=== PATIENT | female | born 1950 | race Caucasian/White ===

== ENCOUNTER → 2017-03-03 | Outpatient (CLI) | payer MEDICARE, OTHER | LOC: WI 13:02 | PROVIDERS: ATTEND Family Medicine | DX: Z12.31 Encounter for screening mammogram for malignant neoplasm of breast (principal) | CPT/HCPCS: 77067; G0202 ==

== ENCOUNTER → 2018-03-16 | Outpatient (CLI) | payer MEDICARE, OTHER ==
--- NOTE | 2018-03-16 13:43 | WOMENS IMAGING REPORT ---
EXAM DESCRIPTION: BONE DENSITY HIP/SPINE COMPLETED DATE/TIME: 03/16/2018 12:58 pm REASON FOR STUDY: OSTEOPOROSIS M81.0 AGE-RELATED OSTEOPOROSIS W/O CURRENT PATHOLOGICAL FRAC COMPARISON: Multiple since 2006, most recently 2016 TECHNIQUE: Dual-Energy X-ray Absorptiometry (DEXA) of the AP Spine and Hip. LIMITATIONS: None. FINDINGS: LUMBAR SPINE: The bone mineral density (BMD) measured from L1-L4 in the AP projection correlates with a T-score of -1.0, which is osteopenia as defined by the World Health Organization. This represents a 5% decline since 2016. HIP: The bone mineral density (BMD) measured in the left total hip correlates with a T-score of -1.9, whi ch is osteopenia as defined by the World Health Organization. This represents a 6% decrease in bone density compared to 2016 IMPRESSION: 1. LUMBAR SPINE: Osteopenia 2. HIP: Osteopenia COMMENT: The World Health Organization defines low BMD as follows: T-score: Normal: Greater than -1.0 Osteopenia: Between -1.0 and -2.5 Osteoporosis: Less than -2.5 without fractures Established osteoporosis: Less than -2.5 with fractures In general, you may wish to consider: Diagnosis Treatment Follow-up DEXA Normal BMD Prevention 2-3 years Osteopenia Prevention/Therapy 1-2 years Osteoporosis Therapy Yearly TECHNICAL DOCUMENTATION: JOB ID: [id number]- All Rights Reserved Reading location - IP/workstation name: [email or web address]
== END ==
LOC: WI 12:55
PROVIDERS: ATTEND Family Medicine
DX: M81.0 Age-related osteoporosis without current pathological fracture (principal)
CPT/HCPCS: 77080

== ENCOUNTER → 2018-03-20 | Outpatient (CLI) | payer MEDICARE, OTHER ==
--- NOTE | 2018-03-20 14:10 | WOMENS IMAGING REPORT ---
EXAM DESCRIPTION: BILAT SCREENING MAMMO W/CAD COMPLETED DATE/TIME: 03/20/2018 12:34 pm REASON FOR STUDY: ROUTINE SCREENING;Z12.31 Z12.31 ENCNTR SCREEN MAMMOGRAM FOR MALIGNANT NEOPLASM OF [place] COMPARISON: [id number] TECHNIQUE: Standard craniocaudal and mediolateral oblique views of each breast recorded using [employer] acquisition. LIMITATIONS: None. FINDINGS: No masses, calcifications or architectural distortion. No areas of suspicion. Read with the assistance of CAD. .[facility] - R2 [employer]enova Version 1.3 .[facility] - R2 Cen[employer] Version 1.3 .[facility] - R2 Cenova Version 2.4 .[facility] - R2 Cenova Version 2.4 .[facility] - R2 [employer] Version 9.2 IMPRESSION: NORMAL MAMMOGRAM. BIRADS 1. BREAST DENSITY: b. There are scattered areas of fibroglandular density. BIRAD: 1 NEGATIVE RECOMMENDATION: ROUTINE SCREENING COMMENT: The patient has been notified of the results by letter per SA requirements. Additional no tification policies are in place for contacting patient with suspicious or incomplete findings. Quality ID #[id number]: The [employer] recommends an annual screening mammogram for women aged 40 years or over. This facility utilizes a reminder system to ensure that all patients receive reminder letters, and/or direct phone calls for appointments. This includes reminders for routine scr eening mammograms, diagnostic mammograms, or other Breast Imaging Interventions when appropriate. Th is patient will be placed in the appropriate reminder system. The [employer] (ACR) has developed recommendations for screening MRI of the breast s in certain patient populations, to be used in conjunction with mammography. Breast MRI surveillanc e may be appropriate for women with more than 20% lifetime risk of developing breast cancer as deter mined by genetic testing, significant family history of the disease, or history of mantle radiation f or Hodgkins Disease. ACR Practice Guidelines 2008. TECHNICAL DOCUMENTATION: FINDING NUMBER: (1) ASSESSMENT: (1) JOB ID: [id number] [facility]- All Rights Reserved Reading location - IP/workstation name: [email or web address]
== END ==
LOC: WI 10:28
PROVIDERS: ATTEND Family Medicine
DX: Z12.31 Encounter for screening mammogram for malignant neoplasm of breast (principal)
CPT/HCPCS: 77067

== ENCOUNTER → 2018-06-23 | Outpatient (CLI) | payer MEDICARE, OTHER ==
[2018-06-23 11:35] LABS: T.VAGINALIS (WET MOUNT) NO TRICHOMONAS SEEN
[2018-06-23 11:36] LABS: RBCS (WET MOUNT) FEW RBCS SEEN; WBCS (WET MOUNT) 1+ WBCS SEEN; YEAST (WET MOUNT) NO YEAST SEEN
== END ==
LOC: LAB 11:22
PROVIDERS: ATTEND Nurse Practitioner Family
DX: N30.90 Cystitis, unspecified without hematuria (principal); R30.0 Dysuria
CPT/HCPCS: 87086; 87210

== ENCOUNTER → 2018-11-12 | Outpatient (CLI) | payer MEDICARE, OTHER | LOC: OD 15:04 | PROVIDERS: ATTEND Nurse Practitioner Acute Care | DX: R30.0 Dysuria (principal) | CPT/HCPCS: 87086 ==

== ENCOUNTER 2019-01-02 07:56 | Observation (INO) | payer MEDICARE, OTHER ==
[2019-01-02] MEDS ORDERED: IPRATROPIUM/ALBUTEROL 0.5-2.5 MG/3 ML AMPUL NEB ONE (08:16)
[2019-01-02] MEDS ORDERED: MORPHINE SULFATE 10 MG/ML INJ IV ONE ×2 (08:31→10:31)
[2019-01-02] MEDS ORDERED: ASPIRIN 81 MG TABLET, CHEWABLE PO ONE (08:31)
[2019-01-02] MEDS ORDERED: NORMAL SALINE 1000 ML 1,000 ML IV ONE (08:32)
[2019-01-02] MEDS ORDERED: GUAIFENESIN/D-METHORPHAN (200-20 MG) SYRUP 10 ML PO ONE (08:32)
--- NOTE | 2019-01-02 08:33 | ER Document Report ---
ED Respiratory Problem - General Chief Complaint: Shortness Of Breath Stated Complaint: DIFFICULTY BREATHING Time Seen by Provider: 01/02/19 08:16 Mode of Arrival: Wheelchair Information source: Patient Notes: Patient is a 68-year-old female with a history of COPD, GERD, hiatal hernia, high cholesterol, who presents to the ER today for cough, congestion, feeling ill since , 2 days ago, patient reports that last night she became more short of breath and her heart rate got up in the 140s on her watch that monitors her heart. Patient states that she has never had this happen before. She denies any vomiting or diarrhea, she does report some left pain underneath her breast that is worse with coughing but also present without coughing, she denies any history of blood clots, heart attack or stroke. TRAVEL OUTSIDE OF THE [place] IN LAST 30 DAYS: No - Related Data Allergies/Adverse Reactions: levofloxacin [From Levaquin] Allergy (Verified 01/02/19 07:58) codeine [Codeine] Adverse Reaction (Verified 05/19/14 21:27) Past Medical History - General Information source: Patient - Social History Smoking Status: Never Smoker Family History: Reviewed & Not Pertinent Patient has suicidal ideation: No Patient has homicidal ideation: No - Past Medical History Cardiac Medical History: Reports: Hx Coronary Artery Disease, Hx Hypercholesterolemia Denies: Hx Heart Attack, Hx Hypertension Pulmonary Medical History: Denies: Hx Asthma, Hx Bronchitis, Hx COPD, Hx Pneumonia Neurological Medical History: Reports: Hx Migraine. Denies: Hx Cerebrovascular Accident, Hx Seizures Renal/ Medical History: Denies: Hx Peritoneal Dialysis Musculoskeletal Medical History: Reports Hx Arthritis - knees and neck Past Surgical History: Reports: Hx Cholecystectomy, Hx Hysterectomy, Hx Orthopedic Surgery. Denies: Hx Pacemaker - Immunizations Hx Diphtheria, Pertussis, Tetanus Vaccination: Yes Review of Systems - Review of Systems Constitutional: See HPI EENT: See HPI Cardiovascular: See HPI Respiratory: See HPI Gastrointestinal: See HPI Genitourinary: No symptoms reported Female Genitourinary: No symptoms reported Musculoskeletal: No symptoms reported Skin: No symptoms reported Hematologic/Lymphatic: No symptoms reported Neurological/Psychological: No symptoms reported Physical Exam - Vital signs Vitals: Temp Pulse Resp BP Pulse Ox 99.1 F 121 H 20 122/89 H 100 01/02/19 08:06 01/02/19 08:06 01/02/19 08:06 01/02/19 08:06 01/02/19 08:06 - Notes Notes: PHYSICAL EXAMINATION: GENERAL: uncomfortable appearing, holding left chest under breast, tachycardic, in mild acute distress. HEAD: Atraumatic, normocephalic. EYES: Pupils equal round and reactive to light, extraocular movements intact, sclera anicteric, conjunctiva are normal. ENT: Airway patent, ear canals without erythema or foreign body, TMs pearly escudero with good bony landmarks, nares patent, oropharynx clear without exudates. Moist mucous membranes. NECK: Normal range of motion, supple without lymphadenopathy LUNGS: CTAB and equal. No wheezes rales or rhonchi. HEART: Tachycardic with regular rhythm without murmurs ABDOMEN: Soft, epigastric tenderness. No guarding, no rebound BACK: no vertebral tenderness, normal ROM GI/: no CVA tenderness EXTREMITIES: Normal range of motion, no pitting edema. No cyanosis. NEUROLOGICAL: Cranial nerves grossly intact. Normal sensory/motor exams. PSYCH: Normal mood, normal affect. SKIN: Warm, Dry, normal turgor, no rashes or lesions noted Course - Re-evaluation Re-evalutation: 01/02/19 18:51 Patient came in tachycardic in the 120s, remained tachycardic despite 2 L of IV fluids, troponin negative, EKG without evidence of ischemia, CTA of the chest was performed to rule out pulmonary embolism and was negative for PE, chest x- ray reports no acute pathology, I believe patient likely just has a viral upper respiratory infection but as she is still tachycardic I do not feel comfortable sending her home. Patient admitted at this time. She was given Protonix, Pepcid for her GERD symptoms, CTA of the chest did not mention her hiatal hernia. Lab work is unremarkable otherwise. - Vital Signs Vital signs: Temp Pulse Resp BP Pulse Ox 99.9 F 110 H 18 116/62 94 01/02/19 18:00 01/02/19 14:40 01/02/19 18:00 01/02/19 17:05 01/02/19 18:00 - Laboratory Result Diagrams: 01/02/19 08:27 01/02/19 08:27 Laboratory results interpreted by me: 01/02/19 01/02/19 01/02/19 08:27 08:27 08:27 Seg Neutrophils % 80.5 H Lymphocytes % 7.1 L Absolute Lymphocytes 0.4 L D-Dimer 0.74 H BUN 24 H Est GFR ( Amer) 58 L Est GFR (Non-Af Amer) 48 L Calcium 10.4 H AST 37 H Critical Care Note - Critical Care Note Total time excluding time spent on procedures (mins): 35 - 35___ minutes spent in critical care time with patient, consulted with attending, speaking with family, placing orders and evaluating tests and labs. Discharge - Discharge Clinical Impression: SOB (shortness of breath), COPD exacerbation, Viral URI with cough Condition: Stable Disposition: ADMITTED OBSERVATION Admitting Provider: Hospitalist Unit Admitted: Telemetry
[2019-01-02 09:03] LABS: ABSOLUTE EOSINOPHILS # (AUTO) 0.1 10^3/uL (0.0-0.6); ABSOLUTE LYMPHOCYTES (AUTO) 0.4 10^3/uL (0.5-4.7); ABSOLUTE MONOCYTES (AUTO) 0.6 10^3/uL (0.1-1.4); ABSOLUTE NEUT (AUTO) 4.2 10^3/uL (1.7-8.2); ALANINE AMINOTRANSFERASE 33 U/L (9-52); ALBUMIN 4.9 g/dL (3.5-5.0); ALKALINE PHOSPHATASE 91 U/L (38-126); ANION GAP 13 (5-19); ASPARTATE AMINO TRANSFERASE 37 U/L (14-36); BASOPHILS % (AUTO) 0.4 % (0-2); BILIRUBIN,DIRECT 0.2 mg/dL (0.0-0.4); BLOOD UREA NITROGEN 24 mg/dL (7-20); CALCIUM 10.4 mg/dL (8.4-10.2); CARBON DIOXIDE 27 mmol/L (22-30); CHLORIDE 100 mmol/L (98-107); CREATINE KINASE 71 U/L (30-135); EOSINOPHILS % (AUTO) 1.1 % (0-6); GLUCOSE 105 mg/dL (75-110); HEMATOCRIT 40.8 % (36.0-47.0); HEMOGLOBIN 14.2 g/dL (12.0-15.5); LYMPHOCYTES % (AUTO) 7.1 % (13-45); MEAN CORPUSCULAR HEMOGLOBIN 31.4 pg (27.0-33.4); MEAN CORPUSCULAR HGB CONC 34.9 g/dL (32.0-36.0); MEAN CORPUSCULAR VOLUME 90 fl (80-97); MONOCYTES % (AUTO) 10.9 % (3-13); PLATELET COUNT 181 10^3/uL (150-450); POTASSIUM 3.9 mmol/L (3.6-5.0); RED BLOOD COUNT 4.53 10^6/uL (3.72-5.28); RED CELL DISTRIBUTION WIDTH 13.3 % (11.5-14.0); SEGMENTED NEUTROPHILS % (AUTO) 80.5 % (42-78); SODIUM 139.9 mmol/L (137-145); TOTAL CELLS COUNTED % (AUTO) 100 %; WHITE BLOOD COUNT 5.2 10^3/uL (4.0-10.5)
[2019-01-02 09:15] LABS: CREATINE KINASE MB 0.37 ng/mL (<4.55)
--- NOTE | 2019-01-02 09:15 | RADIOLOGY REPORT (SQ) ---
EXAM DESCRIPTION: CHEST 2 VIEWS COMPLETED DATE/TIME: 01/02/2019 9:07 am REASON FOR STUDY: cough sob COMPARISON: 08/07/2016 NUMBER OF VIEWS: Two view. TECHNIQUE: Frontal and lateral radiographic views of the chest acquired. LIMITATIONS: None. FINDINGS: LUNGS AND PLEURA: Calcified granuloma left upper lobe. Stable scarring left base. No pleu ral effusion. Attenuated blood vessels and flattened denia-diaphragms. MEDIASTINUM AND HILAR STRUCTURES: No masses. No contour abnormalities. HEART AND VASCULAR STRUCTURES: Heart normal in size and contour. No evidence for failure. BONES: No acute findings. HARDWARE: None in the chest. OTHER: No other significant finding. IMPRESSION: COPD. NO ACUTE RADIOGRAPHIC FINDING IN THE CHEST. TECHNICAL DOCUMENTATION: JOB ID: [id number] [employer]- All Rights Reserved Reading location - IP/workstation name: [email or web address]
[2019-01-02 09:25] LABS: TROPONIN I < 0.012 ng/mL
[2019-01-02] MEDS ORDERED: ALPRAZOLAM 0.5 MG TABLET PO ONE ×2 (10:21→10:23)
[2019-01-02] MEDS ORDERED: PANTOPRAZOLE SODIUM 40 MG VIAL IV ONE (10:21)
--- NOTE | 2019-01-02 10:29 | RADIOLOGY REPORT (SQ) ---
EXAM DESCRIPTION: CTA CHEST COMPLETED DATE/TIME: 01/02/2019 10:11 am REASON FOR STUDY: tachycardia, sob, left sided cp, elevated d dimer COMPARISON: 05/19/2014 TECHNIQUE: CT scan of the chest performed using helical scanning technique with dynamic intravenous contrast injection. Images reviewed with lung, soft tissue and bone windows. Reconstructed coronal and sagittal MPR images reviewed. Additional 3 dimensional post-processing performed to develop Maximal Intensity Projection images (AZ P). All images stored on PACS. All CT scanners at this facility use dose modulation, iterative reconstruction, and/or weight based d osing when appropriate to reduce radiation dose to as low as reasonably achievable (ALARA). [facility]: Dose Right [facility]: CareDose [facility]: Dose Right [facility]: Teradose 4D [facility]: WIB CONTRAST TYPE AND DOSE: contrast/concentration: Isovue 350.00 mg/ml; Total Contrast Delivered: 68.0 ml; Total Saline Delivered: 80.0 ml Contrast bolus adequate for pulmonary arteries and aorta. RENAL FUNCTION: GFR > 60. RADIATION DOSE: CT Rad equipment meets quality standard of care and radiation dose reduction techniq ues were employed. CTDIvol: 14.3 - 16.5 mGy. DLP: 549 mGy-cm. . LIMITATIONS: None. FINDINGS: LUNGS AND PLEURA: Calcified granuloma left upper lobe. No infiltrate. No effusions. AORTA AND GREAT VESSELS: No aneurysm. No dissection. HEART: No pericardial effusion. PULMONARY ARTERIES: No emboli visualized in the main pulmonary arteries or the segmental branches. HILAR AND MEDIASTINAL STRUCTURES: No identified masses or abnormal nodes. HARDWARE: None in the chest. UPPER ABDOMEN: No acute findings. Limited exam. THYROID AND OTHER SOFT TISSUES: No masses. No adenopathy. BONES: No acute or significant finding. 3D MIPS: Confirm above findings. OTHER: No other significant finding. IMPRESSION: No evidence of pulmonary embolus. COMMENT: Quality ID # [id number]: Final reports with documentation of one or more dose reduction techniques (e.g., Automated exposure control, adjustment of the mA and/or kV according to patient size, use of iterative reconstruction technique) TECHNICAL DOCUMENTATION: JOB ID: [id number] [employer]- All Rights Reserved Reading location - IP/workstation name: [email or web address]
[2019-01-02] MEDS ORDERED: FAMOTIDINE 20 MG TABLET PO ONE (10:30)
[2019-01-02] MEDS ORDERED: ALBUTEROL SULFATE 0.083% NEB 2.5 MG/3 ML AMPUL NEB ONE (10:31)
[2019-01-02 11:54] LABS: A TYPE INFLUENZA AG NEGATIVE (NEGATIVE)
[2019-01-02 11:55] LABS: B INFLUENZA AG NEGATIVE (NEGATIVE)
[2019-01-02] MEDS: NORMAL SALINE 1000 ML 1,000 ML IV PRN (12:32)
--- NOTE | 2019-01-02 12:37 | EKG REPORT ---
SEVERITY:- BORDERLINE ECG - SINUS RHYTHM BORDERLINE T ABNORMALITIES, INFERIOR LEADS : Confirmed by: Luma Purcell MD 02-Jan-2019 12:36:20
[2019-01-02 13:11] LABS: APPEARANCE,URINE CLEAR; BILIRUBIN,URINE NEGATIVE (NEGATIVE); COLOR,URINE YELLOW; GLUCOSE, URINE NEGATIVE (NEGATIVE); KETONES,URINE NEGATIVE (NEGATIVE); LEUKOCYTE ESTERASE,URINE NEGATIVE (NEGATIVE); NITRITE,URINE NEGATIVE (NEGATIVE); PROTEIN,URINE NEGATIVE (NEGATIVE); URINE SPECIFIC GRAVITY > 1.060; UROBILINOGEN,URINE NEGATIVE mg/dL (<2.0)
--- NOTE | 2019-01-02 14:26 | PDOC H&P ---
History of Present Illness Admission Date/PCP: 01/02/19 13:02 ELISEO DIAZ MD Patient complains of: elevated heart rate History of Present Illness: ABRIL SCHNEIDER is a 68 year old female with history of GERD, asthma, seasonal allergies, and depression who presents with 3 day history of viral URI like symptoms including lethargy, cough, and low grade fevers. Last night, 01/01, she noticed that her heart rate was elevated, up to 140s. She was asymptomatic and denies chest pain, SOB, lightheadness, dizziness. States that this has never happened before. Notes that she has not been eating and drinking as much as usual. Given elevated HR, she presented to [facility] for further evaluation. Work up was notable for sinus tachycardia. No elevation in WBC, however lactate was 2.3. Cr noted to be 1.13. Patient received IVF * 2L with improvement in HR however still remains borderline elevated. Admitted to hospitalist service for observation on medicine floor. Past Medical History Cardiac Medical History: Reports: Coronary Artery Disease, Hyperlipidema Denies: Myocardial Infarction, Hypertension Pulmonary Medical History: Denies: Asthma, Bronchitis, Chronic Obstructive Pulmonary Disease (COPD), Pneumonia Neurological Medical History: Reports: Migraine Denies: Seizures Musculoskeltal Medical History: Reports: Arthritis - knees and neck Hematology: Denies: Anemia Past Surgical History Past Surgical History: Reports: Cholecystectomy, Hysterectomy, Orthopedic [place] katharine Denies: Pacemaker Social History Information Source: Patient Lives with: Spouse/Significant other Smoking Status: Never Smoker Frequency of Alcohol Use: Rare Hx Recreational Drug Use: No Hx Prescription Drug Abuse: No Family History Family History: Reviewed & Not Pertinent Parental Family History Reviewed: No Children Family History Reviewed: NA Sibling(s) Family History Reviewed.: NA Medication/Allergy Home Medications: Calcium Carbonate/Vitamin D3 [Calcium 500-Vit D3 200 Caplet] tab PO DAILY PRN 05/19/14 Montelukast Sodium [Singulair 10 mg Tablet] 10 mg PO QHS 05/19/14 Naproxen 500 mg PO Q12HP PRN 05/19/14 Rizatriptan Benzoate [Maxalt Dressing Machine Operator] 10 mg PO ASDIR PRN 05/19/14 Trazodone HCl [Desyrel 50 mg Tablet] 50 mg PO QHS 05/19/14 Albuterol Sulfate [Proair Hfa Inhalation Aerosol 8.5 gm Mdi] 1 puff IH Q4 PRN 01/02/19 Atorvastatin Calcium [Lipitor 20 mg Tablet] 20 mg PO QHS 01/02/19 Ipratropium [place] [Atrovent 0.02% Neb 0.5 mg/2.5 ml Ampul] 0.5 mg NEB 01/02/19 Latanoprost/Pf [Latanoprost 0.005% Eye Drop] 1 drop QHS 01/02/19 Pantoprazole Sodium [Protonix] 40 mg PO BID 01/02/19 Ranitidine HCl [Zantac 150 mg Tablet] 150 mg PO 01/02/19 Sertraline HCl [Zoloft 50 mg Tablet] 50 mg PO 01/02/19 Allergies/Adverse Reactions: levofloxacin [From Levaquin] Allergy (Verified 01/02/19 07:58) codeine [Codeine] Adverse Reaction (Verified 05/19/14 21:27) Review of Systems All systems: reviewed and no additional remarkable complaints except as stated Physical Exam Vital Signs: Temp Pulse Resp BP Pulse Ox 99.1 F 121 H 16 112/62 96 01/02/19 08:06 01/02/19 08:06 01/02/19 12:01 01/02/19 12:01 01/02/19 12:01 Intake & Output 01/01/19 01/02/19 01/03/19 06:59 06:59 07:59 Intake Total 1000 Balance 1000 Weight 68.9 kg General appearance: PRESENT: no acute distress, cooperative, well-developed, well-nourished Head exam: PRESENT: atraumatic, normocephalic Eye exam: PRESENT: EOMI, PERRLA. ABSENT: scleral icterus Mouth exam: PRESENT: moist Respiratory exam: PRESENT: unlabored. ABSENT: tachypnea Cardiovascular exam: PRESENT: +S1, +S2, tachycardia GI/Abdominal exam: PRESENT: soft. ABSENT: tenderness Extremities exam: ABSENT: +1 edema Musculoskeletal exam: PRESENT: full ROM Neurological exam: PRESENT: alert, awake, CN II-XII grossly intact. ABSENT: aphasic Psychiatric exam: PRESENT: appropriate affect, normal mood Skin exam: PRESENT: dry, intact Results Laboratory Results: 01/02/19 08:27 01/02/19 08:27 01/02/19 01/02/19 01/02/19 08:27 08:27 12:55 WBC 5.2 RBC 4.53 Hgb 14.2 Hct 40.8 MCV 90 MCH 31.4 MCHC 34.9 RDW 13.3 Plt Count 181 Seg Neutrophils % 80.5 H Lymphocytes % 7.1 L Monocytes % 10.9 Eosinophils % 1.1 Basophils % 0.4 Absolute Neutrophils 4.2 Absolute Lymphocytes 0.4 L Absolute Monocytes 0.6 Absolute Eosinophils 0.1 Absolute Basophils 0.0 Sodium 139.9 Potassium 3.9 Chloride 100 Carbon Dioxide 27 Anion Gap 13 BUN 24 H Creatinine 1.13 Est GFR ( Amer) 58 L Est GFR (Non-Af Amer) 48 L Glucose 105 Lactic Acid Cancelled Calcium 10.4 H Total Bilirubin 1.0 AST 37 H ALT 33 Alkaline Phosphatase 91 Total Protein 8.0 Albumin 4.9 Urine Color Urine Appearance Urine pH Ur Specific [place] Urine Protein Urine Glucose (UA) Urine Ketones Urine Blood Urine Nitrite Ur Leukocyte Esterase Urine WBC (Auto) Urine RBC (Auto) 01/02/19 01/02/19 12:55 13:32 WBC RBC Hgb Hct MCV MCH MCHC RDW Plt Count Seg Neutrophils % Lymphocytes % Monocytes % Eosinophils % Basophils % Absolute Neutrophils Absolute Lymphocytes Absolute Monocytes Absolute Eosinophils Absolute Basophils Sodium Potassium Chloride Carbon Dioxide Anion Gap BUN Creatinine Est GFR ( Amer) Est GFR (Non-Af Amer) Glucose Lactic Acid 2.3 H Calcium Total Bilirubin AST ALT Alkaline Phosphatase Total Protein Albumin Urine Color YELLOW Urine Appearance CLEAR Urine pH 6.0 Ur Specific [place] > 1.060 Urine Protein NEGATIVE Urine Glucose (UA) NEGATIVE Urine Ketones NEGATIVE Urine Blood NEGATIVE Urine Nitrite NEGATIVE Ur Leukocyte Esterase NEGATIVE Urine WBC (Auto) 1 Urine RBC (Auto) 4 01/02/19 01/02/19 08:27 08:27 Creatine Kinase 71 CK-MB (CK-2) 0.37 Troponin I < 0.012 Impressions: Chest X-Ray 01/02/19 08:16 IMPRESSION: COPD. NO ACUTE RADIOGRAPHIC FINDING IN THE CHEST. Chest/Abdomen CTA 01/02/19 09:19 IMPRESSION: No evidence of pulmonary embolus. Assessment & Plan - Diagnosis (1) Sinus tachycardia Is this a current diagnosis for this admission?: Yes Plan: Presenting symptom noted on patient's smart watch over last 24 hours - Most likely due to viral URI causing poor PO intake leading to volume deleption and sinus tach - In ED, D dimer was slightly high. Given sinus tach, CTA chest was obtained and negative for PE. No evidence of LE edema on exam - Will receive 2L IVF in ED, continue for 1 additional day - In AM will check TSH as alternate etiology - Admit as observation. If stable, consider d/c to home on 01/03 (2) Viral URI with cough Is this a current diagnosis for this admission?: Yes Plan: 3 day history. No evidence of bacterial infection given symptoms - Ordered Mucinex for cough suppression, and xopenex breathing tx (to prevent exacerbating tachycardia) - Continue to support symptoms (3) GERD (gastroesophageal reflux disease) Is this a current diagnosis for this admission?: Yes Plan: Known history - Continue home H2 manuel and PPI (4) Asthma Qualifiers: Asthma severity: mild Is this a current diagnosis for this admission?: Yes Plan: Unclear if patient has formal diagnosis of asthma or if this is a cough variant asthma due to GERD (5) TOMMY (acute kidney injury) Is this a current diagnosis for this admission?: Yes Plan: Per above - In setting of dehydration - Continue IVF - Time Time Spent: 50 to 70 Minutes Critical Time spent with patient: Less than 15 minutes Anticipated discharge: Home Within: within 24 hours
[2019-01-02] MEDS ORDERED: ACETAMINOPHEN 325 MG TABLET PO ONE (17:53)
[2019-01-02] MEDS: ONDANSETRON 4 MG TAB.RAPDIS PO PRN (17:58)
[2019-01-02] MEDS: 1/2 NORMAL SALINE 1,000 ML IV PRN (18:23)
[2019-01-02] MEDS: ENOXAPARIN SODIUM INJ 40 MG/0.4 ML DISP.SYRIN SUBCUT SCH (18:24)
[2019-01-02] MEDS: LEVALBUTEROL HCL NEB 1.25 MG/3 ML AMPUL NEB PRN (18:29)
[2019-01-02] MEDS: ATORVASTATIN CALCIUM 20 MG TABLET PO SCH (21:22)
[2019-01-02] MEDS: GUAIFENESIN 600 MG TABLET.SA PO SCH (21:22)
[2019-01-02] MEDS: TRAZODONE HCL 50 MG TABLET PO SCH (21:22)
[2019-01-02] MEDS: MONTELUKAST SODIUM 10 MG TABLET PO SCH (21:22)
[2019-01-02] MEDS: ACETAMINOPHEN 325 MG TABLET PO PRN (21:23)
[2019-01-03] MEDS: LANSOPRAZOLE 30 MG TAB.RAP.DR PO SCH ×2 (05:31→17:27)
[2019-01-03 05:37] LABS: HEMATOCRIT 32.7 % (36.0-47.0); MEAN CORPUSCULAR HEMOGLOBIN 31.3 pg (27.0-33.4); MEAN CORPUSCULAR HGB CONC 34.9 g/dL (32.0-36.0); MEAN CORPUSCULAR VOLUME 90 fl (80-97); PLATELET COUNT 113 10^3/uL (150-450); RED BLOOD COUNT 3.64 10^6/uL (3.72-5.28); WHITE BLOOD COUNT 3.2 10^3/uL (4.0-10.5)
[2019-01-03 05:49] LABS: ANION GAP 8 (5-19); BLOOD UREA NITROGEN 18 mg/dL (7-20); CALCIUM 8.7 mg/dL (8.4-10.2); CARBON DIOXIDE 22 mmol/L (22-30); CHLORIDE 109 mmol/L (98-107); GLUCOSE 84 mg/dL (75-110); POTASSIUM 3.9 mmol/L (3.6-5.0); SODIUM 139.3 mmol/L (137-145)
[2019-01-03 05:53] LABS: HEMOGLOBIN 11.4 g/dL (12.0-15.5)
[2019-01-03] MEDS: NALBUPHINE HCL INJ 10 MG/1 ML AMPULE IV PRN ×3 (06:25→14:06)
[2019-01-03] MEDS: NORMAL SALINE 1000 ML 1,000 ML IV PRN ×2 (06:27→17:33)
[2019-01-03] MEDS: LEVALBUTEROL HCL NEB 1.25 MG/3 ML AMPUL NEB PRN ×2 (06:33→14:32)
[2019-01-03] MEDS: ACETAMINOPHEN 325 MG TABLET PO PRN (08:02)
[2019-01-03] MEDS: ENOXAPARIN SODIUM INJ 40 MG/0.4 ML DISP.SYRIN SUBCUT SCH (10:31)
[2019-01-03] MEDS: FAMOTIDINE 20 MG TABLET PO SCH ×2 (10:34→17:27)
[2019-01-03] MEDS: GUAIFENESIN 600 MG TABLET.SA PO SCH ×2 (10:34→22:48)
[2019-01-03] MEDS: SERTRALINE HCL 50 MG TABLET PO SCH (10:36)
[2019-01-03] MEDS: 1/2 NORMAL SALINE 1,000 ML IV PRN (10:47)
[2019-01-03] MEDS: MORPHINE SULFATE 10 MG/ML INJ IV PRN (17:32)
--- NOTE | 2019-01-03 22:07 | PDOC PROGRESS REPORT ---
Subjective Progress Note for:: 01/03/19 Subjective:: ABRIL SCHNEIDER is a 68 year old female with history of CAD, HTN, GERD, asthma, seasonal allergies, and depression. She presented to [facility] with viral URI symptoms, tachycardia and anorexia. The patient was admitted to the hospitalist service for TOMMY and asthma. The patient was seen this morning on rounds. She is resting in bed receiving a nebulizer treatment. She states she feels like "I've been run over by a bus." The patient c/o of persistent VALVERDE made worse with coughing. Her cough is nonproductive and she makes a croup-like (barking seal) sound to when she coughs. Lung sounds are coarse upon auscultation. No peripheral or central cyanosis. Tachycardia has resolved, the patient is now NSR. The patient appears to be obviously uncomfortable, will stay inpatient for one more day. Plan for discharge tomorrow. Plan to change pain medication from Nubain to Morphine IV. Continue scheduled steroids, PRN nebulizer treatments and BID mucinex. Will increase frequency of steroids, Reason For Visit: TACHYCARDIA,TOMMY Physical Exam Vital Signs: Temp Pulse Resp BP Pulse Ox 100.8 F H 92 17 129/63 H 96 01/03/19 19:38 01/03/19 19:38 01/03/19 19:38 01/03/19 19:38 01/03/19 19:38 Intake & Output 01/02/19 01/03/19 01/04/19 05:59 06:59 06:59 Intake Total 2042 Output Total 1400 Balance 642 Weight General appearance: PRESENT: mild distress Head exam: PRESENT: atraumatic Eye exam: PRESENT: conjunctiva pink, PERRLA Mouth exam: PRESENT: moist, tongue midline Neck exam: PRESENT: full ROM Respiratory exam: PRESENT: symmetrical. ABSENT: retraction, rhonchi, unlabored Cardiovascular exam: PRESENT: RRR Pulses: PRESENT: normal radial pulses, normal dorsalis pedis pul Vascular exam: PRESENT: normal capillary refill GI/Abdominal exam: PRESENT: soft. ABSENT: distended, tenderness Rectal exam: PRESENT: deferred Extremities exam: PRESENT: full ROM. ABSENT: pedal edema Musculoskeletal exam: PRESENT: ambulatory, full ROM Neurological exam: PRESENT: alert, awake, oriented to person, oriented to place, oriented to time, oriented to situation Psychiatric exam: PRESENT: appropriate affect Results Laboratory Results: 01/03/19 05:07 01/03/19 05:07 01/03/19 01/03/19 01/03/19 05:07 05:07 05:07 WBC 3.2 L RBC 3.64 L Hgb 11.4 L D Hct 32.7 L MCV 90 MCH 31.3 MCHC 34.9 RDW 13.0 Plt Count 113 L Sodium 139.3 Potassium 3.9 Chloride 109 H Carbon Dioxide 22 Anion Gap 8 BUN 18 Creatinine 0.95 Est GFR ( Amer) > 60 Est GFR (Non-Af Amer) 58 L Glucose 84 Calcium 8.7 TSH 0.85 01/02/19 01/02/19 08:27 08:27 Creatine Kinase 71 CK-MB (CK-2) 0.37 Troponin I < 0.012 Impressions: Chest X-Ray 01/02/19 08:16 IMPRESSION: COPD. NO ACUTE RADIOGRAPHIC FINDING IN THE CHEST. Chest/Abdomen CTA 01/02/19 09:19 IMPRESSION: No evidence of pulmonary embolus. Status: Imported from PACS Assessment & Plan - Diagnosis (1) TOMMY (acute kidney injury) Is this a current diagnosis for this admission?: Yes Plan: Improving Secondary to dehydration stemming from viral illness Creatinine 1.1-->0.9 No hx kidney disease Continuous IVF daily chemistries (2) Asthma Qualifiers: Asthma severity: mild Is this a current diagnosis for this admission?: Yes Plan: Unclear if patient has formal diagnosis of asthma PRN nebulizer tx supplemental O2 as needed (3) GERD (gastroesophageal reflux disease) Is this a current diagnosis for this admission?: Yes Plan: [facility] GERD Daily PPI (4) Viral URI with cough Is this a current diagnosis for this admission?: Yes Plan: No evidence of bacterial infection on laboratory studies, imaging or with symptomology CXR demonstrates chronic changes, no acute pathology Xopenex nebulizer treatments (to prevent exacerbating tachycardia BID mucinex (5) Headache Qualifiers: Headache type: unspecified Headache chronicity pattern: acute headache Intractability: intractable Qualified Code(s): R51 - Headache Is this a current diagnosis for this admission?: Yes Plan: Patient c/o intractable VALVERDE, worse with coughing Nubain PRN offers very mild relief Denies vision changes Tylenol and Morphine PRN pain Continue IVF Robitussin PRN - Time Time Spent with patient: 15-24 minutes Medications reviewed and adjusted accordingly: Yes Anticipated discharge: Home Within: within 24 hours - Inpatient Certification Based on my medical assessment, after consideration of the patient's comorbidities, presenting symptoms, or acuity I expect that the services needed warrant INPATIENT care.: Yes I certify that my determination is in accordance with my understanding of Medicare's requirements for reasonable and necessary INPATIENT services [42 CFR 412.3e].: Yes Medical Necessity: Need for Pain Control
[2019-01-03] MEDS: TRAZODONE HCL 50 MG TABLET PO SCH (22:47)
[2019-01-03] MEDS: ATORVASTATIN CALCIUM 20 MG TABLET PO SCH (22:47)
[2019-01-03] MEDS: MONTELUKAST SODIUM 10 MG TABLET PO SCH (22:48)
[2019-01-04 05:49] LABS: HEMATOCRIT 33.9 % (36.0-47.0); HEMOGLOBIN 11.6 g/dL (12.0-15.5); MEAN CORPUSCULAR HGB CONC 34.2 g/dL (32.0-36.0); MEAN CORPUSCULAR VOLUME 91 fl (80-97); PLATELET COUNT 127 10^3/uL (150-450); RED BLOOD COUNT 3.74 10^6/uL (3.72-5.28); RED CELL DISTRIBUTION WIDTH 13.3 % (11.5-14.0); WHITE BLOOD COUNT 3.1 10^3/uL (4.0-10.5)
[2019-01-04] MEDS: LANSOPRAZOLE 30 MG TAB.RAP.DR PO SCH (05:59)
[2019-01-04] MEDS: ACETAMINOPHEN 325 MG TABLET PO PRN (05:59)
[2019-01-04] MEDS: MORPHINE SULFATE 10 MG/ML INJ IV PRN (06:00)
[2019-01-04] MEDS: ONDANSETRON 4 MG TAB.RAPDIS PO PRN (06:00)
[2019-01-04 06:08] LABS: ALANINE AMINOTRANSFERASE 144 U/L (9-52); ALBUMIN 3.4 g/dL (3.5-5.0); ALKALINE PHOSPHATASE 107 U/L (38-126); ANION GAP 7 (5-19); ASPARTATE AMINO TRANSFERASE 124 U/L (14-36); BILIRUBIN,DIRECT 0.1 mg/dL (0.0-0.4); BILIRUBIN,TOTAL 0.4 mg/dL (0.2-1.3); BLOOD UREA NITROGEN 13 mg/dL (7-20); CALCIUM 8.7 mg/dL (8.4-10.2); CARBON DIOXIDE 25 mmol/L (22-30); CHLORIDE 104 mmol/L (98-107); GLUCOSE 104 mg/dL (75-110); POTASSIUM 4.1 mmol/L (3.6-5.0); SODIUM 136.3 mmol/L (137-145); TOTAL PROTEIN 5.9 g/dL (6.3-8.2)
[2019-01-04] MEDS: ENOXAPARIN SODIUM INJ 40 MG/0.4 ML DISP.SYRIN SUBCUT SCH (09:07)
[2019-01-04] MEDS: SERTRALINE HCL 50 MG TABLET PO SCH (09:09)
[2019-01-04] MEDS: GUAIFENESIN 600 MG TABLET.SA PO SCH (09:09)
[2019-01-04] MEDS: FAMOTIDINE 20 MG TABLET PO SCH (09:09)
[2019-01-04] MEDS: NORMAL SALINE 1000 ML 1,000 ML IV PRN (09:10)
[2019-01-04] MEDS ORDERED: BUTALB/ACETAMINOPHEN/CAFFEINE 1 TAB EACH PO PRN (10:45)
[2019-01-04] MEDS: LEVALBUTEROL HCL NEB 1.25 MG/3 ML AMPUL NEB PRN (12:09)
[2019-01-04 16:50] VITALS: BP 112/64
== END 2019-01-04 18:07 | disposition home or self-care (01) ==
LOC: ER 07:56 → UNDOADMOB 13:02 → EH 13:02 → 5 20:42
PROVIDERS: ADMIT Internal Medicine; ATTEND Internal Medicine
DX: R00.0 Tachycardia, unspecified (principal); J06.9 Acute upper respiratory infection, unspecified; J45.998 Other asthma; N17.9 Acute kidney failure, unspecified; E86.0 Dehydration; K21.9 Gastro-esophageal reflux disease without esophagitis; I25.10 Atherosclerotic heart disease of native coronary artery without angina pectoris; R63.0 Anorexia; R51 Headache; N64.4 Mastodynia; E78.5 Hyperlipidemia, unspecified
CPT/HCPCS: 36415; 71046; 71275; 80048; 80053; 81001; 82550; 82553; 83605; 83735; 84443; 84484; 85025; 85027; 85379; 87040; 87804; 93005; 93010; 94640; 96361; 96374; 96375; 96376; 99291; G0378; J1650; J2270; J2300; J3490; J7030; J7620; S0119; S0164

== ENCOUNTER 2019-01-27 08:02 | Day surgery (SDC) | payer MEDICARE, OTHER ==
[~2019-01-27 08:02] MED LIST: DIPHENHYDRAMINE HCL 50 MG/ML VIAL ONE; EPINEPHRINE INJ 1 MG/10 ML DISP.SYRIN ONE; FLUMAZENIL INJ 0.5 MG/5 ML VIAL ONE; GLUCAGON,HUMAN RECOMB 1 MG INJ ONE; NALOXONE HCL INJ/PF 0.4 MG/1 ML SDV ONE; ONDANSETRON HCL INJ/PF 4 MG/2 ML SDV ONE
[2019-01-27] MEDS: FENTANYL CITRATE INJ/PF 100 MCG/2 ML AMPUL ONE ×3 (08:36→08:45)
[2019-01-27] MEDS: MIDAZOLAM 2 MG/2 ML INJ ONE ×3 (08:41→08:57)
--- NOTE | 2019-01-27 08:53 | Operative Report ---
Operative Report DATE OF SURGERY: 01/27/19 Operative Report: The risks benefits and alternatives of the procedure explained to the patient in detail and informed consent is obtained.A GIF Olympus video scope was inserted into the patient's mouth and hypopharynx, the esophagus is identified intubated and insufflated, the scope was then advanced through the esophagus stomach and duodenum, retroflexion maneuver is done, the esophagus stomach and first and second portions of the duodenum examined. PREOPERATIVE DIAGNOSIS: Gastroesophageal reflux disease POSTOPERATIVE DIAGNOSIS: Gastritis status post biopsy for Helicobacter pylori. Hiatal hernia. Schatzki's ring which is broken OPERATION: EGD with biopsy SURGEON: FELTON MCGEE ANESTHESIA: Moderate Sedation - 4 mg of Versed, 75 mcg of fentanyl. Conscious sedation monitoring time 30 minutes. TISSUE REMOVED OR ALTERED: As noted above. COMPLICATIONS: None. ESTIMATED BLOOD LOSS: None. INTRAOPERATIVE FINDINGS: As noted above. PROCEDURE: Patient tolerated the procedure well. No immediate postprocedure complications are noted. Patient discharged in good condition. Discharge date 01/27/2019. Discharge diet: Regular. Discharge activity: Regular. 2-3-week follow-up to discuss findings. Patient is instructed to call the office or proceed to the emergency room should there be any further questions. I will wait on the pathology.
[2019-01-27 10:10] VITALS: BP 129/69
== END 2019-01-27 10:20 | disposition home or self-care (01) ==
LOC: END 08:02
PROVIDERS: ATTEND Internal Medicine Gastroenterology
DX: K44.9 Diaphragmatic hernia without obstruction or gangrene (principal); K29.50 Unspecified chronic gastritis without bleeding; K22.2 Esophageal obstruction; I47.1 Supraventricular tachycardia; E55.9 Vitamin D deficiency, unspecified; E78.5 Hyperlipidemia, unspecified; J45.20 Mild intermittent asthma, uncomplicated
CPT/HCPCS: 43239; 88305 ×2; J2250; J3010; J0171; J1200; J1610; J2310; J2405; J3490

== ENCOUNTER → 2019-04-15 | Outpatient (CLI) | payer MEDICARE, OTHER ==
--- NOTE | 2019-04-15 14:08 | RADIOLOGY REPORT (SQ) ---
EXAM DESCRIPTION: KNEE BILATERAL 1-2 VIEWS COMPLETED DATE/TIME: 04/15/2019 12:31 pm REASON FOR STUDY: UNSPECIFIED OSTEOARTHRITIS, UNSPECIFIED SITE M19.90 UNSPECIFIED OSTEOARTHRITIS, U NSPECIFIED SITE COMPARISON: 04/27/2013 NUMBER OF VIEWS: Two views TECHNIQUE: AP and lateral standing bilateral knees. LIMITATIONS: None. FINDINGS: MINERALIZATION: Normal. RIGHT KNEE BONES: No acute fracture. No worrisome bone lesions. MEDIAL COMPARTMENT: No significant osteophytes. No joint space narrowing. No chondrocalcinosis. LATERAL COMPARTMENT: No significant osteophytes. No joint space narrowing. No chondrocalcinosis. PATELLOFEMORAL COMPARTMENT: No significant osteophytes. No joint space narrowing. No chondrocalc inosis. LEFT KNEE BONES: No acute fracture. No worrisome bone lesions. MEDIAL COMPARTMENT: No significant osteophytes. No joint space narrowing. No chondrocalcinosis. LATERAL COMPARTMENT: No significant osteophytes. No joint space narrowing. No chondrocalcinosis. PATELLOFEMORAL COMPARTMENT: No significant osteophytes. No joint space narrowing. No chondrocalc inosis. OTHER: There is a small joint effusion in the left knee. IMPRESSION: Small left knee effusion. No acute findings are seen. No significant degenerative join t changes are seen. TECHNICAL DOCUMENTATION: JOB ID: [id number] [email or web address]- All Rights Reserved Reading location - IP/workstation name: [email or web address]
== END ==
LOC: OD 12:10
PROVIDERS: ATTEND Family Medicine
DX: M13.862 Other specified arthritis, left knee (principal); M13.861 Other specified arthritis, right knee; M25.462 Effusion, left knee

== ENCOUNTER → 2019-05-10 | Outpatient (CLI) | payer MEDICARE, OTHER ==
--- NOTE | 2019-05-10 10:19 | WOMENS IMAGING REPORT ---
EXAM DESCRIPTION: BILAT SCREENING MAMMO W/CAD COMPLETED DATE/TIME: 05/10/2019 9:30 am REASON FOR STUDY: Z12.31 ROUTINE BILATERAL SCREENING Z12.31 ENCNTR SCREEN MAMMOGRAM FOR MALIGNANT N EOPLASM OF JOSHUA COMPARISON: [id number] EXAM PARAMETERS: Standard craniocaudal and mediolateral oblique views of each breast recorded using digital acquisition. Read with the assistance of CAD. [facility] - [employer] Version 9.2 LIMITATIONS: None. FINDINGS: No suspicious masses, suspicious calcifications or architectural distortion. No areas of c oncern. IMPRESSION: Negative MAMMOGRAM. BIRADS 1 BREAST DENSITY: b. There are scattered areas of fibroglandular density. BIRAD: ASSESSMENT: 1 NEGATIVE RECOMMENDATION: ROUTINE SCREENING COMMENT: The patient has been notified of the results by letter per MQSA requirements. Additional no tification policies are in place for contacting patient with suspicious or incomplete findings. Quality ID #225: The [employer] recommends an annual screening mammogram for women aged 40 years or over. This facility utilizes a reminder system to ensure that all patients receive reminder letters, and/or direct phone calls for appointments. This includes reminders for routine scr eening mammograms, diagnostic mammograms, or other Breast Imaging Interventions when appropriate. Th is patient will be placed in the appropriate reminder system. TECHNICAL DOCUMENTATION: FINDING NUMBER: (1) ASSESSMENT: (1) JOB ID: [id number] [employer]- All Rights Reserved Reading location - IP/workstation name: [email or web address]
== END ==
LOC: WI 09:11
PROVIDERS: ATTEND Family Medicine
DX: Z12.31 Encounter for screening mammogram for malignant neoplasm of breast (principal)
CPT/HCPCS: 77067

== ENCOUNTER → 2019-05-29 | Outpatient (CLI) | payer MEDICARE, OTHER ==
--- NOTE | 2019-05-29 16:09 | RADIOLOGY REPORT (SQ) ---
EXAM DESCRIPTION: FOOT RIGHT COMPLETE COMPLETED DATE/TIME: 05/29/2019 1:31 pm REASON FOR STUDY: (M79.671)PAIN IN RIGHT FOOT; (M79.675) M79.675 PAIN IN LEFT TOE(S) M79.671 PAIN IN RIGHT FOOT COMPARISON: None. NUMBER OF VIEWS: Three views. TECHNIQUE: AP, lateral and oblique without weight bearing radiographic images acquired of the right foot. LIMITATIONS: None. FINDINGS: MINERALIZATION: Normal. BONES: No acute fracture or dislocation. No worrisome bone lesions. No significant osteophytes. JOINTS: No erosions. No germaine-articular osteopenia. No chondrocalcinosis. SOFT TISSUES: No swelling. No calcifications. OTHER: No other significant finding. IMPRESSION: NEGATIVE STUDY OF THE RIGHT FOOT. NO EXPLANATION FOR PAIN. TECHNICAL DOCUMENTATION: JOB ID: [id number] [employer]- All Rights Reserved Reading location - IP/workstation name: [email or web address]
--- NOTE | 2019-05-29 16:12 | RADIOLOGY REPORT (SQ) ---
EXAM DESCRIPTION: TOE LEFT COMPLETED DATE/TIME: 05/29/2019 1:31 pm REASON FOR STUDY: (M79.671)PAIN IN RIGHT FOOT; (M79.675)PAIN IN LEFT TOE(S) M79.675 PAIN IN LEFT TO E(S) M79.671 PAIN IN RIGHT FOOT COMPARISON: None. NUMBER OF VIEWS: Three views. TECHNIQUE: AP, lateral, and oblique images acquired of the left toes. LIMITATIONS: None. FINDINGS: MINERALIZATION: Normal. BONES: Mild irregularity at the base of the middle phalanx of the 2nd toe. Otherwise no acute fractu re or dislocation. No worrisome bone lesions. JOINTS: No effusions. SOFT TISSUES: No soft tissue swelling. No foreign body. OTHER: No other significant finding. IMPRESSION: MILD IRREGULARITY AT BASE OF THE MIDDLE PHALANX OF THE 2ND TOE. THIS IS PROBABLY CHRONI C, RELATED TO DEGENERATIVE CHANGES. CANNOT EXCLUDE MINIMALLY DISPLACED RECENT OR OLD FRACTURE. NO O THER SIGNIFICANT FINDINGS. COMMENT: SITE OF TRAUMA/COMPLAINT MARKED/STAMP COMPLETED: YES. TECHNICAL DOCUMENTATION: JOB ID: [id number] [employer]- All Rights Reserved Reading location - IP/workstation name: [email or web address]
== END ==
LOC: RAD 11:56
PROVIDERS: ATTEND Nurse Practitioner Acute Care
DX: M79.675 Pain in left toe(s) (principal); M79.671 Pain in right foot

== ENCOUNTER 2019-09-15 07:17 | Day surgery (SDC) | payer MEDICARE, OTHER ==
[2019-09-15] MEDS ORDERED: NALOXONE HCL INJ/PF 0.4 MG/1 ML SDV ONE (07:19)
[2019-09-15] MEDS ORDERED: DIPHENHYDRAMINE HCL 50 MG/ML VIAL ONE (07:19)
[2019-09-15] MEDS ORDERED: ONDANSETRON HCL INJ/PF 4 MG/2 ML SDV ONE (07:19)
[2019-09-15] MEDS ORDERED: FLUMAZENIL INJ 0.5 MG/5 ML VIAL ONE (07:19)
[2019-09-15] MEDS ORDERED: GLUCAGON,HUMAN RECOMB 1 MG INJ ONE (07:20)
[2019-09-15] MEDS ORDERED: EPINEPHRINE INJ 1 MG/10 ML DISP.SYRIN ONE (07:20)
[2019-09-15] MEDS: FENTANYL CITRATE INJ/PF 100 MCG/2 ML AMPUL ONE ×3 (08:04→08:10)
[2019-09-15] MEDS: MIDAZOLAM 2 MG/2 ML INJ ONE ×2 (08:04→08:08)
--- NOTE | 2019-09-15 08:19 | Operative Report ---
Operative Report DATE OF SURGERY: 09/15/19 Operative Report: The risks benefits and alternatives of the procedure explained to the patient in detail and informed consent is obtained.A GIF Olympus video scope was inserted into the patient's mouth and hypopharynx, the esophagus is identified intubated and insufflated, the scope was then advanced through the esophagus stomach and duodenum, retroflexion maneuver is done ,the esophagus stomach and first and second portions of the duodenum examined PREOPERATIVE DIAGNOSIS: Gastroesophageal reflux disease, dyspepsia POSTOPERATIVE DIAGNOSIS: Hiatal hernia. Schatzki's ring that is broken. Gastritis status post biopsy without Helicobacter pylori OPERATION: EGD with biopsy SURGEON: FELTON MCGEE ANESTHESIA: Moderate Sedation - 4 mg of Versed, 100 mcg of fentanyl. Conscious sedation monitoring time 30 minutes. TISSUE REMOVED OR ALTERED: As noted above. COMPLICATIONS: None. ESTIMATED BLOOD LOSS: None. INTRAOPERATIVE FINDINGS: As noted above. PROCEDURE: Patient tolerated the procedure well. No immediate postprocedure complications are noted. Patient is discharged in good condition. Discharge date 09/15/2019. Discharge diet: Regular. Discharge activity: Regular. 2 to 3-week follow-up to discuss findings. Patient is instructed to call the office or proceed to the emergency room should there be any further questions. Wait on the pathology.
[2019-09-15 09:20] VITALS: BP 108/71
== END 2019-09-15 09:20 | disposition home or self-care (01) ==
LOC: END 07:17
PROVIDERS: ATTEND Internal Medicine Gastroenterology
DX: K44.9 Diaphragmatic hernia without obstruction or gangrene (principal); K21.9 Gastro-esophageal reflux disease without esophagitis; K22.2 Esophageal obstruction; K29.50 Unspecified chronic gastritis without bleeding; Z79.899 Other long term (current) drug therapy; Z79.51 Long term (current) use of inhaled steroids; Z79.82 Long term (current) use of aspirin
CPT/HCPCS: 43239; 88305 ×2; J2250; J3010; J0171; J1200; J1610; J2310; J2405; J3490

== ENCOUNTER → 2020-07-05 | Outpatient (CLI) | payer MEDICARE, OTHER ==
--- NOTE | 2020-07-05 10:49 | WOMENS IMAGING REPORT ---
EXAM DESCRIPTION: 3D SCREENING MAMMO BILAT IMAGES COMPLETED DATE/TIME: 07/05/2020 10:33 am REASON FOR STUDY: Z12.31 ENCOUNTER FOR SCREENING MAMMOGRAM FOR MALIGNANT NEOPLASM OF BREAST Z12.31 ENCNTR SCREEN MAMMOGRAM FOR MALIGNANT NEOPLASM OF JOSHUA M81.0 AGE-RELATED OSTEOPOROSIS W/O CURRENT PAT HOLOGICAL FRAC COMPARISON: Priors dating back to 2011 EXAM PARAMETERS: Views: Standard craniocaudal and mediolateral oblique views of each breast recorded using digital acquisition and breast tomosynthesis. Read with the assistance of CAD. .[facility] - [employer] Version 9.2 LIMITATIONS: None. FINDINGS: No suspicious masses, suspicious calcifications or architectural distortion. No areas of c oncern. IMPRESSION: NEGATIVE MAMMOGRAM. BIRADS 1. BREAST DENSITY: b. There are scattered areas of fibroglandular density. BIRAD: ASSESSMENT: 1 NEGATIVE RECOMMENDATION: ROUTINE SCREENING COMMENT: The patient has been notified of the results by letter per MQSA requirements. Additional no tification policies are in place for contacting patient with suspicious or incomplete findings. Quality ID #225: The [employer] recommends an annual screening mammogram for women aged 40 years or over. This facility utilizes a reminder system to ensure that all patients receive reminder letters, and/or direct phone calls for appointments. This includes reminders for routine scr eening mammograms, diagnostic mammograms, or other Breast Imaging Interventions when appropriate. Th is patient will be placed in the appropriate reminder system. TECHNICAL DOCUMENTATION: FINDING NUMBER: (1) ASSESSMENT: (1) JOB ID: [id number] [employer]- All Rights Reserved Reading location - IP/workstation name: [email or web address]
--- NOTE | 2020-07-05 12:22 | WOMENS IMAGING REPORT ---
EXAM DESCRIPTION: BONE DENSITY HIP/SPINE IMAGES COMPLETED DATE/TIME: 07/05/2020 10:33 am REASON FOR STUDY: M81.0 AGE-RELATED OSTEOPOROSIS WITHOUT CURRENT PATHOLOGICAL FRACTURE Z12.31 ENCNT R SCREEN MAMMOGRAM FOR MALIGNANT NEOPLASM OF JOSHUA M81.0 AGE-RELATED OSTEOPOROSIS W/O CURRENT PATHOLOG ICAL FRAC COMPARISON: 7 studies dating back to 2006 TECHNIQUE: Dual-Energy X-ray Absorptiometry (DEXA) of the AP Spine and Hip. LIMITATIONS: None. FINDINGS: LUMBAR SPINE: The bone mineral density (BMD) measured from L1-L4 in the AP projection correlates with a T-score of -1.6, which is osteopenia as defined by the World Health Organization. BMD Change vs Baseline: -2.9% HIP: The bone mineral density (BMD) measured in the left hip correlates with a T-score of -2.4, which is o steopenia as defined by the World Health Organization. BMD Change vs Baseline: -10.5% 10 year Fracture Risk Assessment: Major Osteoporotic Fracture: 13% Hip Fracture: 2.9% IMPRESSION: 1. LUMBAR SPINE WHO CLASSIFICATION: OSTEOPENIA. 2. HIP WHO CLASSIFICATION: OSTEOPENIA. OVERALL ASSESSMENT: WHO CLASSIFICATION: OSTEOPENIA. COMMENT: The World Health Organization defines low BMD as follows: T-score: Normal: At or above -1.0 Osteopenia: Between -1.0 and -2.5 Osteoporosis: At or below -2.5 without fractures Established osteoporosis: At or below -2.5 with fractures In general, you may wish to consider: Diagnosis Treatment Follow-up DEXA Normal BMD Prevention 2-3 years Osteopenia Prevention/Therapy 1-2 years Osteoporosis Therapy Yearly TECHNICAL DOCUMENTATION: JOB ID: [id number] [employer]- All Rights Reserved Reading location - IP/workstation name: [email or web address]
== END ==
LOC: WI 10:10
PROVIDERS: ATTEND Family Medicine
DX: Z12.31 Encounter for screening mammogram for malignant neoplasm of breast (principal); M81.0 Age-related osteoporosis without current pathological fracture
CPT/HCPCS: 77063; 77067; 77080